=== PATIENT | male | born 1965 | race Caucasian/White ===

== ENCOUNTER → 2016-06-19 | Outpatient (CLI) | payer OTHER ==
[~2016-06-19] VITALS: Ht 180.3 cm; Wt 90.7 kg
[~2016-06-19] MED LIST: AMLOD-VALSA-HC1 EAC3 PO; AMLODIPINE BESY10 MG PO; SIMVASTATIN20 MG PO
== END | disposition home or self-care (01) ==
LOC: AMB 06:40
PROC: 0DBE8ZZ Excision of Large Intestine, Via Natural or Artificial Opening Endoscopic (ICD-10-PCS; principal; 2016-06-19)
DX: Z12.11 Encounter for screening for malignant neoplasm of colon (principal); D12.2 Benign neoplasm of ascending colon; K64.8 Other hemorrhoids; I10 Essential (primary) hypertension
CPT/HCPCS: 88305; 93005; J2250; J3010